=== PATIENT | male | born 1950 | race Caucasian/White ===

== ENCOUNTER → 2017-06-16 | Outpatient (CLI) | payer BC ==
[~2017-06-16] MED LIST: GADOBUTROL 10 ML VIAL IVP ONE
== END ==
LOC: FIMAGING 06:44
PROVIDERS: ATTEND Family Medicine
DX: R20.2 Paresthesia of skin (principal); Z85.46 Personal history of malignant neoplasm of prostate; J32.9 Chronic sinusitis, unspecified
CPT/HCPCS: A9585